=== PATIENT | male | born 1950 | race Caucasian/White ===

== ENCOUNTER 2019-10-27 12:38 | Observation (INO) ==
[2019-10-27 13:55] LABS: INR 1.4; Prothrombin Time 15.6 Seconds (9.4-12.1)
[2019-10-27] MEDS ORDERED: Ondansetron ODT 4 MG TAB.RAPDIS SL PRN (14:45)
[2019-10-27] MEDS ORDERED: Albumin 25% 25gram/100mL 25 GM/100 ML IV.SOLN IVC SCH (15:45)
[2019-10-27 17:07] LABS: Bilirubin,Urine Negative (Negative); Blood,Urine Negative (Negative); Clarity,Urine Clear (Clear); Color,Urine Yellow (Yellow); Glucose,Urine (UA) Normal (Normal); Ketones,Urine Negative (Negative); Leukocyte Esterase,Urine Negative (Negative); Nitrite,Urine Negative (Negative); PH,Urine 6.5 pH Units (5.0-8.0); Protein,Urine Negative (Neg-Trace); Specific Gravity,Urine 1.014 (1.010-1.025); Urobilinogen,Urine Normal (Normal)
[2019-10-27] MEDS ORDERED: Dextrose Gel 15 GM/37.5 ML TUBE PO PRN ×2 (17:31→17:54)
[2019-10-27 17:35] LABS: RBC,Peritoneal Fluid < 0.002 M/mcL
[2019-10-27] MEDS ORDERED: D5% in Water 1,000 ML IVC PRN (17:54)
[2019-10-27] MEDS ORDERED: *HR* Dextrose 50 % in Water (Syg) 50 ML SYRINGE IVP PRN (17:54)
[2019-10-27] MEDS ORDERED: Albumin 25% 25gram/100mL 25 GM/100 ML IV.SOLN IVPB SCH (18:00)
[2019-10-27 18:06] LABS: % Iron Saturation 5 % (20-55); Iron 20 mcg/dL (65-175); Transferrin 285 mg/dL (203-362)
[2019-10-27 18:21] LABS: LDH,Peritoneal Fluid 39 Units/L (No Ref Range); Total Protein,Peritoneal Fluid < 3.0 g/dL
[2019-10-27 18:22] LABS: Ferritin 15 ng/mL (20-250)
[2019-10-27 19:08] LABS: Appearance of Peritoneal Fl CLEAR (Clear); Basophils,Peritoneal Fluid 0 %; Eosinophils,Peritoneal Fluid 0 %
[2019-10-27] MEDS: Octreotide 400 MCG in 0.9 % Sodium Chloride 100 ML IVC SCH (19:29)
[2019-10-27] MEDS: Iron Sucrose Complex 400 MG in 0.9 % Sodium Chloride 250 ML IVPB SCH (20:15)
[2019-10-27] MEDS ORDERED: 0.9 % Sodium Chloride 250 ML ONE (20:42)
[2019-10-27] MEDS: traZODone 50 MG TABLET PO SCH (20:59)
[2019-10-27] MEDS: Insulin LISPRO 300 UNITS/3 ML VIAL SQ SCH (21:00)
[2019-10-27] MEDS: Triamcinolone Acet 0.1% CRM 15 GM TUBE TP SCH (21:00)
[2019-10-27] MEDS: Albumin 25% 25gram/100mL 25 GM/100 ML IV.SOLN IVPB SCH ×2 (21:55→23:33)
[2019-10-28] MEDS ORDERED: 0.9 % Sodium Chloride 250 ML ONE (01:05)
[2019-10-28 01:23] LABS: Hematocrit 21.8 % (37.5-50.1); Hemoglobin 7.1 g/dL (12.9-16.9); Mean Corpuscular HGB Conc 32.6 g/dL (31.6-35.5); Mean Corpuscular Hemoglobin 28.3 pg (28.0-33.3); Mean Corpuscular Volume 86.9 fL (83.0-100.0); Mean Platelet Volume 9.1 fL (9.4-12.4); Platelet Count 288 K/mcL (140-400); Red Blood Count 2.51 M/mcL (4.19-5.50); Red Cell Distribution Width 15.1 % (11.5-14.5); White Blood Count 4.8 K/mcL (4.3-11.1)
[2019-10-28 01:36] LABS: Albumin 3.1 g/dL (3.5-5.7); Albumin/Globulin Ratio 0.9 (1.1-2.2); Bilirubin,Total 1.3 mg/dL (0.3-1.0); Calcium 8.7 mg/dL (8.6-10.3); Globulin 3.5 g/dL (2.4-3.5); Potassium 4.9 mEq/L (3.5-5.1); Total Protein 6.6 g/dL (6.4-8.9)
[2019-10-28 01:37] LABS: Calcium 8.7 mg/dL (8.6-10.3); Potassium 4.8 mEq/L (3.5-5.1)
[2019-10-28] MEDS: Albumin 25% 25gram/100mL 25 GM/100 ML IV.SOLN IVPB SCH (02:17)
[2019-10-28 06:11] LABS: Hematocrit 24.3 % (37.5-50.1); Mean Corpuscular HGB Conc 32.9 g/dL (31.6-35.5); Mean Platelet Volume 8.7 fL (9.4-12.4); Platelet Count 241 K/mcL (140-400); Red Blood Count 2.76 M/mcL (4.19-5.50); Red Cell Distribution Width 15.2 % (11.5-14.5); White Blood Count 5.1 K/mcL (4.3-11.1)
[2019-10-28] MEDS: Insulin LISPRO 300 UNITS/3 ML VIAL SQ SCH ×4 (08:11→21:32)
[2019-10-28] MEDS ORDERED: *HR* LORazepam 2 MG/ML VIAL IVP PRN ×3 (08:18)
[2019-10-28] MEDS: Triamcinolone Acet 0.1% CRM 15 GM TUBE TP SCH ×2 (08:19→21:47)
[2019-10-28] MEDS ORDERED: Albumin 25% 25gram/100mL 25 GM/100 ML IV.SOLN IVPB ONE (09:17)
[2019-10-28] MEDS ORDERED: Piperacillin/Tazobactam 3.375 GM in 0.9 % Sodium Chloride Mini Bag 100 ML IVPB SCH (09:19)
[2019-10-28] MEDS: Folic Acid 1 MG TABLET PO SCH (11:02)
[2019-10-28] MEDS: Vitamin B Complex/Vit C/Vit E 1 EACH TABLET PO SCH (11:02)
[2019-10-28] MEDS: Thiamine (B-1) 100 MG TABLET PO SCH (11:02)
[2019-10-28] MEDS: Octreotide 400 MCG in 0.9 % Sodium Chloride 100 ML IVC SCH (12:42)
[2019-10-28] MEDS ORDERED: *HR* Propofol 200 MG/20 ML VIAL IVP ONE (14:19)
[2019-10-28] MEDS ORDERED: Lidocaine -MPF 2% 2 ML VIAL ONE (14:22)
[2019-10-28] MEDS ORDERED: EPHEDrine 50 MG/ML VIAL ONE (14:40)
[2019-10-28] MEDS ORDERED: *HR* Etomidate 40 MG/20 ML VIAL IVP ONE (14:41)
[2019-10-28 17:30] LABS: Hepatitis B Surface Antigen Nonreactive (Nonreactive)
[2019-10-28 17:59] LABS: Hepatitis C Virus Antibody Nonreactive (Nonreactive)
[2019-10-28 18:00] LABS: Hepatitis A Antibody IgM Nonreactive (Nonreactive); Hepatitis B Core IgM Nonreactive (Nonreactive)
[2019-10-28] MEDS: Iron Sucrose Complex 400 MG in 0.9 % Sodium Chloride 250 ML IVPB SCH (19:56)
[2019-10-28] MEDS: traZODone 50 MG TABLET PO SCH (21:47)
[2019-10-29 00:37] LABS: Sodium, Urine 63.8 mEq/L
[2019-10-29 05:26] LABS: Basophils % 0.6 %; Eosinophils # 0.3 K/mcL (0.0-0.6); Hematocrit 25.7 % (37.5-50.1); Hemoglobin 8.5 g/dL (12.9-16.9); Immature Granulocytes % 0.2 % (0-4); Lymphocytes # 1.3 K/mcL (0.6-4.6); Lymphocytes % 24.5 %; Mean Corpuscular HGB Conc 33.1 g/dL (31.6-35.5); Mean Corpuscular Hemoglobin 28.8 pg (28.0-33.3); Mean Corpuscular Volume 87.1 fL (83.0-100.0); Mean Platelet Volume 8.7 fL (9.4-12.4); Monocytes # 0.4 K/mcL (0.0-1.3); Neutrophils # 3.3 K/mcL (1.6-8.9); Platelet Count 300 K/mcL (140-400); Red Blood Count 2.95 M/mcL (4.19-5.50); Red Cell Distribution Width 15.7 % (11.5-14.5); Segmented Neutrophils % 60.7 %; White Blood Count 5.4 K/mcL (4.3-11.1)
[2019-10-29] MEDS: Octreotide 400 MCG in 0.9 % Sodium Chloride 100 ML IVC SCH (05:41)
[2019-10-29 05:45] LABS: Calcium 8.4 mg/dL (8.6-10.3); Magnesium 1.1 mg/dL (1.6-2.6); Potassium 4.1 mEq/L (3.5-5.1)
[2019-10-29 06:06] LABS: Folate 21.5 ng/mL (3.0-16.0)
[2019-10-29] MEDS ORDERED: Multivit/Ca/Min/Fe/FA 1 TAB TABLET PO SCH (09:00)
[2019-10-29] MEDS: Folic Acid 1 MG TABLET PO SCH (09:14)
[2019-10-29] MEDS: Vitamin B Complex/Vit C/Vit E 1 EACH TABLET PO SCH (09:14)
[2019-10-29] MEDS: Thiamine (B-1) 100 MG TABLET PO SCH (09:14)
[2019-10-29] MEDS: Insulin LISPRO 300 UNITS/3 ML VIAL SQ SCH ×2 (09:15→12:06)
[2019-10-29] MEDS: Triamcinolone Acet 0.1% CRM 15 GM TUBE TP SCH (09:16)
[2019-10-29 14:58] VITALS: BP 92/54
== END 2019-10-29 17:37 | disposition home or self-care (01) ==
LOC: 3ANU 12:38 → EMEROOARM 12:38 → SUATTDRO 15:46 → 3ANU 17:25
PROVIDERS: ADMIT Internal Medicine; ATTEND Pharmacist

== ENCOUNTER 2020-02-21 19:23 | Inpatient (IN) ==
[2020-02-21] MEDS ORDERED: Isovue-370 500 ML BOTTLE IVP ONE (19:37)
[2020-02-21 19:55] LABS: Basophils % 0.1 %; Eosinophils # 0.2 K/mcL (0.0-0.6); Hematocrit 32.2 % (37.5-50.1); Hemoglobin 10.3 g/dL (12.9-16.9); Immature Granulocytes % 0.6 % (0-4); Lymphocytes # 0.9 K/mcL (0.6-4.6); Mean Corpuscular Hemoglobin 27.8 pg (28.0-33.3); Mean Corpuscular Volume 86.8 fL (83.0-100.0); Mean Platelet Volume 8.6 fL (9.4-12.4); Monocytes # 0.6 K/mcL (0.0-1.3); Monocytes % 6.7 %; Neutrophils # 6.7 K/mcL (1.6-8.9); Platelet Count 411 K/mcL (140-400); Red Blood Count 3.71 M/mcL (4.19-5.50); Red Cell Distribution Width 17.3 % (11.5-14.5); Segmented Neutrophils % 79.6 %; White Blood Count 8.4 K/mcL (4.3-11.1)
[2020-02-21 20:05] LABS: INR 1.2
[2020-02-21 20:24] LABS: Alanine Aminotransferase 28 Units/L (7-52); Albumin 2.9 g/dL (3.5-5.7); Albumin/Globulin Ratio 0.6 (1.1-2.2); Alkaline Phosphatase 137 Units/L (34-104); Aspartate Amino Transferase 48 Units/L (13-39); BUN/Creatinine Ratio 20 (6-26); Bilirubin,Direct 0.4 mg/dL (0.0-0.2); Bilirubin,Indirect 0.6 mg/dL (0.0-1.0); Blood Urea Nitrogen 42 mg/dL (8-23); Calcium 8.8 mg/dL (8.6-10.3); Carbon Dioxide 19 mEq/L (23-29); Chloride 92 mEq/L (98-107); Ethanol < 10 mg/dL (Less than 10); Globulin 4.6 g/dL (2.4-3.5); Glucose 146 mg/dL (70-105); Osmolality,Calculated 265 (280-300); Potassium 4.8 mEq/L (3.5-5.1); Sodium 121 mEq/L (136-145); Total Protein 7.5 g/dL (6.4-8.9); Troponin I < 0.03 ng/mL (< 0.04); eGFR For African Americans 39 (> 60); eGFR For Non-African Americans 32 (> 60)
[2020-02-21 20:33] LABS: Bilirubin,Urine Negative (Negative); Blood,Urine Negative (Negative); Clarity,Urine Clear (Clear); Color,Urine Yellow (Yellow); Glucose,Urine (UA) Normal (Normal); Ketones,Urine Negative (Negative); Leukocyte Esterase,Urine Negative (Negative); Nitrite,Urine Negative (Negative); Protein,Urine Negative (Neg-Trace); Specific Gravity,Urine 1.017 (1.010-1.025); Urobilinogen,Urine Normal (Normal)
[2020-02-21 20:45] LABS: Amphetamine Screen,Urine Negative ng/mL (Cutoff=1000); Barbiturate Screen,Urine Negative ng/mL (Cutoff=200); Benzodiazepines Screen,Urine Negative ng/mL (Cutoff=200); Cannabinoid Screen,Urine Negative ng/mL (Cutoff = 50); Cocaine Screen,Urine Negative ng/mL (Cutoff= 300); Opiate Screen,Urine Negative ng/mL (Cutoff=300); Phencyclidine Screen,Urine Negative ng/mL (Cutoff=25)
[2020-02-21] MEDS ORDERED: Lactulose Oral Soln 20 GM/30 ML UDC PO ONE (21:15)
[2020-02-21] MEDS ORDERED: Naloxone 0.4 MG/ML INJ IVP PRN (22:40)
[2020-02-22 00:54] LABS: Hematocrit 30.4 % (37.5-50.1); Hemoglobin 10.1 g/dL (12.9-16.9); Mean Corpuscular HGB Conc 33.2 g/dL (31.6-35.5); Mean Corpuscular Hemoglobin 28.9 pg (28.0-33.3); Mean Corpuscular Volume 87.1 fL (83.0-100.0); Mean Platelet Volume 9.1 fL (9.4-12.4); Platelet Count 371 K/mcL (140-400); Red Blood Count 3.49 M/mcL (4.19-5.50); Red Cell Distribution Width 17.4 % (11.5-14.5); White Blood Count 8.8 K/mcL (4.3-11.1)
[2020-02-22 00:57] LABS: INR 1.3; Prothrombin Time 14.4 Seconds (9.4-12.1)
[2020-02-22 01:23] LABS: Albumin 2.8 g/dL (3.5-5.7); Albumin/Globulin Ratio 0.6 (1.1-2.2); Bilirubin,Total 1.1 mg/dL (0.3-1.0); Calcium 8.8 mg/dL (8.6-10.3); Globulin 4.6 g/dL (2.4-3.5); Magnesium 1.6 mg/dL (1.6-2.6); Potassium 5.7 mEq/L (3.5-5.1); Total Protein 7.4 g/dL (6.4-8.9)
[2020-02-22 03:23] LABS: Calcium 8.6 mg/dL (8.6-10.3); Potassium 5.2 mEq/L (3.5-5.1)
[2020-02-22] MEDS ORDERED: Albumin 25% 25gram/100mL 25 GM/100 ML IV.SOLN IVPB ONE (03:37)
[2020-02-22] MEDS ORDERED: D5% in Water 1,000 ML IVC PRN (03:43)
[2020-02-22] MEDS ORDERED: Dextrose Gel 15 GM/37.5 ML TUBE PO PRN ×2 (03:43)
[2020-02-22] MEDS ORDERED: *HR* Dextrose 50 % in Water (Syg) 50 ML SYRINGE IVP PRN (03:43)
[2020-02-22] MEDS ORDERED: Lactulose Oral Soln 20 GM/30 ML UDC PO ONE (04:15)
[2020-02-22 07:13] LABS: Calcium 8.7 mg/dL (8.6-10.3); Potassium 5.2 mEq/L (3.5-5.1)
[2020-02-22] MEDS ORDERED: Furosemide 20 MG/2 ML VIAL IVP ONE (07:34)
[2020-02-22 08:10] LABS: Thyroid Stimulating Hormone 3.479 mcIU/mL (0.340-5.600)
[2020-02-22] MEDS ORDERED: Spironolactone 25 MG TABLET PO SCH (09:00)
[2020-02-22] MEDS ORDERED: Lactulose Oral Soln 20 GM/30 ML UDC PO SCH (09:00)
[2020-02-22] MEDS: Insulin LISPRO 300 UNITS/3 ML VIAL SQ SCH ×4 (09:35→21:08)
[2020-02-22] MEDS: Thiamine (B-1) 100 MG TABLET PO SCH (10:02)
[2020-02-22] MEDS: Vitamin B Complex/Vit C/Vit E 1 EACH TABLET PO SCH (10:02)
[2020-02-22] MEDS: Folic Acid 1 MG TABLET PO SCH (10:02)
[2020-02-22] MEDS ORDERED: Bisacodyl 10 MG RECTAL SUPPOSITORY RC ONE (11:32)
[2020-02-22] MEDS: Albumin 25% 25gram/100mL 25 GM/100 ML IV.SOLN IVPB SCH ×2 (15:25→23:57)
[2020-02-22 17:08] LABS: Potassium 5.1 mEq/L (3.5-5.1)
[2020-02-22 19:32] LABS: Potassium 5.1 mEq/L (3.5-5.1)
[2020-02-22] MEDS ORDERED: traZODone 50 MG TABLET PO SCH (21:00)
[2020-02-22] MEDS: Lactulose Oral Soln 20 GM/30 ML UDC PO SCH (21:10)
[2020-02-23 05:00] LABS: Basophils % 0.3 %; Eosinophils # 0.2 K/mcL (0.0-0.6); Eosinophils % 2.9 %; Immature Granulocytes % 0.5 % (0-4); Lymphocytes # 1.1 K/mcL (0.6-4.6); Lymphocytes % 14.3 %; Mean Corpuscular Volume 85.3 fL (83.0-100.0); Mean Platelet Volume 9.4 fL (9.4-12.4); Monocytes # 0.7 K/mcL (0.0-1.3); Monocytes % 9.5 %; Neutrophils # 5.4 K/mcL (1.6-8.9); Platelet Count 315 K/mcL (140-400); Red Blood Count 2.93 M/mcL (4.19-5.50); Red Cell Distribution Width 17.2 % (11.5-14.5); Segmented Neutrophils % 72.5 %; White Blood Count 7.5 K/mcL (4.3-11.1)
[2020-02-23 05:01] LABS: Hemoglobin 8.5 g/dL (12.9-16.9)
[2020-02-23 05:08] LABS: INR 1.5; Prothrombin Time 16.9 Seconds (9.4-12.1)
[2020-02-23 05:20] LABS: Albumin 2.9 g/dL (3.5-5.7); Bilirubin,Total 1.3 mg/dL (0.3-1.0); Calcium 8.6 mg/dL (8.6-10.3); Globulin 2.9 g/dL (2.4-3.5); Magnesium 1.6 mg/dL (1.6-2.6); Potassium 5.1 mEq/L (3.5-5.1); Total Protein 5.8 g/dL (6.4-8.9)
[2020-02-23] MEDS: Insulin LISPRO 300 UNITS/3 ML VIAL SQ SCH ×4 (08:23→21:00)
[2020-02-23] MEDS: Folic Acid 1 MG TABLET PO SCH (08:43)
[2020-02-23] MEDS: Vitamin B Complex/Vit C/Vit E 1 EACH TABLET PO SCH (08:43)
[2020-02-23] MEDS: Thiamine (B-1) 100 MG TABLET PO SCH (08:43)
[2020-02-23] MEDS: Lactulose Oral Soln 20 GM/30 ML UDC PO SCH ×2 (08:43→21:13)
[2020-02-23] MEDS: Albumin 25% 25gram/100mL 25 GM/100 ML IV.SOLN IVPB SCH ×2 (08:44→16:08)
[2020-02-23] MEDS ORDERED: *HR* Propofol 200 MG/20 ML VIAL IVP ONE (12:46)
[2020-02-23] MEDS ORDERED: SODIUM CHLORIDE/NAHCO3/KCL/PEG 4,000 ML SOLN.RECON PO ONE (12:51)
[2020-02-23] MEDS: 0.9 % Sodium Chloride 500 ML IVC SCH ×2 (14:42→23:16)
[2020-02-23] MEDS: polyethylene glycoL 3350 17 GM POWD.PACK PO SCH (21:13)
[2020-02-24] MEDS: Albumin 25% 25gram/100mL 25 GM/100 ML IV.SOLN IVPB SCH ×4 (01:55→23:46)
[2020-02-24 03:48] LABS: Basophils % 0.3 %; Eosinophils # 0.2 K/mcL (0.0-0.6); Eosinophils % 3.7 %; Hematocrit 24.2 % (37.5-50.1); Hemoglobin 8.1 g/dL (12.9-16.9); Immature Granulocytes % 0.3 % (0-4); Lymphocytes % 15.6 %; Mean Corpuscular HGB Conc 33.5 g/dL (31.6-35.5); Mean Corpuscular Hemoglobin 28.5 pg (28.0-33.3); Mean Corpuscular Volume 85.2 fL (83.0-100.0); Mean Platelet Volume 8.7 fL (9.4-12.4); Monocytes # 0.6 K/mcL (0.0-1.3); Monocytes % 9.5 %; Neutrophils # 4.4 K/mcL (1.6-8.9); Platelet Count 279 K/mcL (140-400); Red Blood Count 2.84 M/mcL (4.19-5.50); Red Cell Distribution Width 17.2 % (11.5-14.5); Segmented Neutrophils % 70.6 %; White Blood Count 6.2 K/mcL (4.3-11.1)
[2020-02-24 04:07] LABS: % Iron Saturation 11 % (20-55); Calcium 8.8 mg/dL (8.6-10.3); Iron 22 mcg/dL (65-175); Potassium 4.8 mEq/L (3.5-5.1); Transferrin 142 mg/dL (203-362)
[2020-02-24 04:25] LABS: Ferritin 20 ng/mL (20-250)
[2020-02-24 04:46] LABS: Folate > 22.3 ng/mL (3.0-16.0); Vitamin B12 1023 pg/mL (250-1100)
[2020-02-24] MEDS: Lactulose Oral Soln 20 GM/30 ML UDC PO SCH ×2 (07:39→20:47)
[2020-02-24] MEDS: polyethylene glycoL 3350 17 GM POWD.PACK PO SCH ×2 (07:40→20:48)
[2020-02-24] MEDS: Folic Acid 1 MG TABLET PO SCH (07:40)
[2020-02-24] MEDS: Thiamine (B-1) 100 MG TABLET PO SCH (07:40)
[2020-02-24] MEDS: Insulin LISPRO 300 UNITS/3 ML VIAL SQ SCH ×4 (07:40→20:44)
[2020-02-24] MEDS: Vitamin B Complex/Vit C/Vit E 1 EACH TABLET PO SCH (07:40)
[2020-02-24] MEDS: 0.9 % Sodium Chloride 500 ML IVC SCH (07:53)
[2020-02-24] MEDS ORDERED: Iron Sucrose Complex 400 MG in 0.9 % Sodium Chloride 250 ML IVPB ONE (09:19)
[2020-02-24 10:03] LABS: INR 1.6; Prothrombin Time 17.9 Seconds (9.4-12.1)
[2020-02-24 10:17] LABS: Albumin 3.5 g/dL (3.5-5.7); Albumin/Globulin Ratio 1.4 (1.1-2.2); Bilirubin,Direct 0.5 mg/dL (0.0-0.2); Bilirubin,Total 1.5 mg/dL (0.3-1.0); Globulin 2.5 g/dL (2.4-3.5)
[2020-02-24] MEDS: *HR* Phytonadione 10 MG/ML AMPUL SQ SCH (15:57)
[2020-02-25] MEDS ORDERED: Melatonin 3 MG TABLET PO ONE ×2 (00:09→23:32)
[2020-02-25 05:37] LABS: Basophils % 0.4 %; Eosinophils # 0.2 K/mcL (0.0-0.6); Hematocrit 23.4 % (37.5-50.1); Hemoglobin 7.7 g/dL (12.9-16.9); Immature Granulocytes % 0.8 % (0-4); Lymphocytes # 0.9 K/mcL (0.6-4.6); Lymphocytes % 16.1 %; Mean Corpuscular HGB Conc 32.9 g/dL (31.6-35.5); Mean Corpuscular Hemoglobin 28.2 pg (28.0-33.3); Mean Corpuscular Volume 85.7 fL (83.0-100.0); Mean Platelet Volume 8.8 fL (9.4-12.4); Monocytes # 0.5 K/mcL (0.0-1.3); Monocytes % 9.9 %; Neutrophils # 3.6 K/mcL (1.6-8.9); Nucleated Red Blood Cells 0.4 /100 WBC (0); Platelet Count 266 K/mcL (140-400); Red Blood Count 2.73 M/mcL (4.19-5.50); Red Cell Distribution Width 17.3 % (11.5-14.5); Segmented Neutrophils % 68.8 %; White Blood Count 5.3 K/mcL (4.3-11.1)
[2020-02-25 05:41] LABS: INR 1.7; Prothrombin Time 18.9 Seconds (9.4-12.1)
[2020-02-25 05:56] LABS: Albumin 3.7 g/dL (3.5-5.7); Albumin/Globulin Ratio 1.8 (1.1-2.2); Bilirubin,Total 1.3 mg/dL (0.3-1.0); Calcium 8.9 mg/dL (8.6-10.3); Globulin 2.1 g/dL (2.4-3.5); Magnesium 2.2 mg/dL (1.6-2.6); Potassium 4.4 mEq/L (3.5-5.1); Total Protein 5.8 g/dL (6.4-8.9)
[2020-02-25] MEDS ORDERED: Iron Sucrose Complex 400 MG in 0.9 % Sodium Chloride 250 ML IVPB ONE (08:00)
[2020-02-25] MEDS: Lactulose Oral Soln 20 GM/30 ML UDC PO SCH ×2 (08:37→21:11)
[2020-02-25] MEDS: Albumin 25% 25gram/100mL 25 GM/100 ML IV.SOLN IVPB SCH (08:37)
[2020-02-25] MEDS: polyethylene glycoL 3350 17 GM POWD.PACK PO SCH ×2 (08:38→21:10)
[2020-02-25] MEDS: Folic Acid 1 MG TABLET PO SCH (08:38)
[2020-02-25] MEDS: Vitamin B Complex/Vit C/Vit E 1 EACH TABLET PO SCH (08:38)
[2020-02-25] MEDS: Thiamine (B-1) 100 MG TABLET PO SCH (08:38)
[2020-02-25] MEDS: Insulin LISPRO 300 UNITS/3 ML VIAL SQ SCH ×4 (10:33→21:11)
[2020-02-25] MEDS: *HR* Phytonadione 10 MG/ML AMPUL SQ SCH (10:55)
[2020-02-25 13:15] LABS: Hematocrit 24.9 % (37.5-50.1)
[2020-02-25 18:28] LABS: Hematocrit 26.9 % (37.5-50.1); Hemoglobin 8.7 g/dL (12.9-16.9)
[2020-02-26 07:37] LABS: Basophils % 0.3 %; Eosinophils # 0.2 K/mcL (0.0-0.6); Hematocrit 24.7 % (37.5-50.1); Hemoglobin 8.2 g/dL (12.9-16.9); Immature Granulocytes % 0.5 % (0-4); Mean Corpuscular HGB Conc 33.2 g/dL (31.6-35.5); Mean Corpuscular Hemoglobin 28.7 pg (28.0-33.3); Mean Corpuscular Volume 86.4 fL (83.0-100.0); Mean Platelet Volume 8.9 fL (9.4-12.4); Monocytes # 0.6 K/mcL (0.0-1.3); Monocytes % 9.4 %; Neutrophils # 4.4 K/mcL (1.6-8.9); Platelet Count 260 K/mcL (140-400); Red Blood Count 2.86 M/mcL (4.19-5.50); Red Cell Distribution Width 17.4 % (11.5-14.5); Segmented Neutrophils % 70.8 %; White Blood Count 6.3 K/mcL (4.3-11.1)
[2020-02-26 07:58] LABS: Magnesium 2.1 mg/dL (1.6-2.6); Phosphorous 3.4 mg/dL (2.7-4.5); Potassium 4.5 mEq/L (3.5-5.1)
[2020-02-26] MEDS: Insulin LISPRO 300 UNITS/3 ML VIAL SQ SCH ×4 (08:50→22:54)
[2020-02-26] MEDS: Folic Acid 1 MG TABLET PO SCH (09:00)
[2020-02-26] MEDS: Thiamine (B-1) 100 MG TABLET PO SCH (09:00)
[2020-02-26] MEDS: Lactulose Oral Soln 20 GM/30 ML UDC PO SCH ×2 (09:00→20:48)
[2020-02-26] MEDS: Vitamin B Complex/Vit C/Vit E 1 EACH TABLET PO SCH (09:00)
[2020-02-26] MEDS: polyethylene glycoL 3350 17 GM POWD.PACK PO SCH ×2 (09:01→20:48)
[2020-02-26 09:55] LABS: INR 1.4; Prothrombin Time 16.1 Seconds (9.4-12.1)
[2020-02-26 10:11] LABS: Albumin 3.8 g/dL (3.5-5.7); Albumin/Globulin Ratio 1.6 (1.1-2.2); Bilirubin,Direct 0.4 mg/dL (0.0-0.2); Bilirubin,Total 1.4 mg/dL (0.3-1.0); Globulin 2.4 g/dL (2.4-3.5); Total Protein 6.2 g/dL (6.4-8.9)
[2020-02-26] MEDS: Albumin 25% 25gram/100mL 25 GM/100 ML IV.SOLN IVPB SCH ×2 (15:22→23:31)
[2020-02-27 07:29] LABS: Hematocrit 24.1 % (37.5-50.1); Hemoglobin 7.9 g/dL (12.9-16.9); Mean Corpuscular HGB Conc 32.8 g/dL (31.6-35.5); Mean Corpuscular Hemoglobin 28.2 pg (28.0-33.3); Mean Corpuscular Volume 86.1 fL (83.0-100.0); Mean Platelet Volume 8.7 fL (9.4-12.4); Platelet Count 282 K/mcL (140-400); Red Cell Distribution Width 17.7 % (11.5-14.5); White Blood Count 5.7 K/mcL (4.3-11.1)
[2020-02-27 07:31] LABS: INR 1.5; Prothrombin Time 16.6 Seconds (9.4-12.1)
[2020-02-27 07:42] LABS: Albumin 3.7 g/dL (3.5-5.7); Albumin/Globulin Ratio 1.8 (1.1-2.2); Bilirubin,Direct 0.3 mg/dL (0.0-0.2); Bilirubin,Total 1.3 mg/dL (0.3-1.0); Globulin 2.1 g/dL (2.4-3.5); Potassium 4.2 mEq/L (3.5-5.1); Total Protein 5.8 g/dL (6.4-8.9)
[2020-02-27] MEDS: Lactulose Oral Soln 20 GM/30 ML UDC PO SCH ×2 (09:31→21:42)
[2020-02-27] MEDS: Albumin 25% 25gram/100mL 25 GM/100 ML IV.SOLN IVPB SCH ×2 (09:32→15:46)
[2020-02-27] MEDS: Folic Acid 1 MG TABLET PO SCH (09:33)
[2020-02-27] MEDS: Vitamin B Complex/Vit C/Vit E 1 EACH TABLET PO SCH (09:33)
[2020-02-27] MEDS: polyethylene glycoL 3350 17 GM POWD.PACK PO SCH ×2 (09:33→21:42)
[2020-02-27] MEDS: Insulin LISPRO 300 UNITS/3 ML VIAL SQ SCH ×4 (09:33→21:32)
[2020-02-27] MEDS: Thiamine (B-1) 100 MG TABLET PO SCH (09:33)
[2020-02-28] MEDS: Albumin 25% 25gram/100mL 25 GM/100 ML IV.SOLN IVPB SCH ×2 (00:18→07:21)
[2020-02-28 05:01] LABS: Basophils % 0.3 %; Eosinophils # 0.2 K/mcL (0.0-0.6); Eosinophils % 3.5 %; Hemoglobin 7.3 g/dL (12.9-16.9); Immature Granulocytes % 0.5 % (0-4); Lymphocytes % 17.1 %; Mean Corpuscular HGB Conc 33.2 g/dL (31.6-35.5); Mean Corpuscular Hemoglobin 28.7 pg (28.0-33.3); Mean Corpuscular Volume 86.6 fL (83.0-100.0); Mean Platelet Volume 8.8 fL (9.4-12.4); Monocytes # 0.5 K/mcL (0.0-1.3); Monocytes % 8.4 %; Neutrophils # 4.2 K/mcL (1.6-8.9); Platelet Count 253 K/mcL (140-400); Red Blood Count 2.54 M/mcL (4.19-5.50); Red Cell Distribution Width 18.2 % (11.5-14.5); Segmented Neutrophils % 70.2 %
[2020-02-28 05:11] LABS: INR 1.5; Prothrombin Time 17.2 Seconds (9.4-12.1)
[2020-02-28 05:22] LABS: Albumin 3.9 g/dL (3.5-5.7); Albumin/Globulin Ratio 1.9 (1.1-2.2); Bilirubin,Total 1.4 mg/dL (0.3-1.0); Calcium 9.1 mg/dL (8.6-10.3); Globulin 2.1 g/dL (2.4-3.5); Potassium 4.3 mEq/L (3.5-5.1)
[2020-02-28] MEDS: Thiamine (B-1) 100 MG TABLET PO SCH (07:20)
[2020-02-28] MEDS: Vitamin B Complex/Vit C/Vit E 1 EACH TABLET PO SCH (07:20)
[2020-02-28] MEDS: Folic Acid 1 MG TABLET PO SCH (07:20)
[2020-02-28] MEDS: polyethylene glycoL 3350 17 GM POWD.PACK PO SCH (07:21)
[2020-02-28] MEDS: Lactulose Oral Soln 20 GM/30 ML UDC PO SCH (07:21)
[2020-02-28] MEDS: Insulin LISPRO 300 UNITS/3 ML VIAL SQ SCH ×2 (07:21→11:46)
[2020-02-28] MEDS ORDERED: 0.9 % Sodium Chloride 250 ML ONE (08:59)
[2020-02-28 12:26] VITALS: BP 116/71
== END 2020-02-28 13:44 | disposition home health service (06) | DRG 432 ==
LOC: 3ANU 19:23 → EMEROOARM 19:23 → 3ANU 02-22 00:09 → SUATTDRO 02-22 00:27
PROVIDERS: ADMIT Student in an Organized Health Care Education/Training Program; ATTEND Internal Medicine